=== PATIENT | male | born 1955 | race Caucasian/White ===

== ENCOUNTER 2018-02-05 11:21 | Emergency (ER) | payer MEDICARE ==
[~2018-02-05] VITALS: Ht 182.9 cm; Wt 126.5 kg
[~2018-02-05 11:21] MED LIST: AMLO10 PO; ASPI325 PO; ASPI325EC PO; ASPI81CH PO; ATOR10 PO; ATOR40TA PO; AZIT250 PO; AZOR; BENAML20/5; BISA5EC PO; BISHYD10; BISHYD10 PO; BISHYD2.5 PO; BUDEPRION; BUPR150ER PO; BUPR150T2 PO; BUPR75 PO; CIPR500 PO; CLOP75 PO; DOXA1 PO; DUTA.5 PO; ENOX100I SC; EZET10-10 PO; FEXPSEER PO; FURO20 PO; FURO40 PO; HYDACE5 PO; HYDR1TAB94 PO; HYDRA25 PO; Keflex500 MG PO; LEVFLO500 PO; LISI5 PO; LORA1 PO; LOSA25 PO; LOSA50 PO; LOSARTAN POTASS25 MG PO; MAGCIT300 PO; MELA3 PO; MELATONIN10 MG PO; METALAZONE; METO25ER PO; METO50 PO; NAPR500 PO; NITR.4SL SL; OXYACE5T PO; Omeprazole20 M1 PO; POTA10T PO; POTCHL20ER PO; PROBIOTIC1 EAC4 PO; PROM25 PO; Percocet 5-3251 EACH PO; RXOXYACE PO; RXPROM25 PO; SPIR25 PO; Stool Softener100 MG PO; TAMS.4ER PO; TORSE20 PO; TRIA80TC TOP; VYTORIN; WARF2.5 PO
[2018-02-05 12:14] LABS: Source, Urine Clean Catch
[2018-02-05 12:17] LABS: Bilirubin, Urine Neg (Neg); Blood, Urine Neg (Neg); Glucose Qualitative, Urine Neg (Neg); Ketones, Urine Neg (Neg); Leukocyte Esterase, Urine Neg (Neg); Nitrite, Urine Neg (Neg); Protein, Urine Neg (Neg); Urobilinogen, Urine NORM (Normal)
[2018-02-05 12:42] LABS: Appearance, Urine Clear (Clear); Color, Urine Yellow (P-Yellow)
[2018-02-05 12:51] LABS: BASOPHILS ABSOLUTE AUTO 0.03 K/mm3 (0.00-0.23); BASOPHILS PERCENT AUTO 0 % (0-2); EOSINOPHILS ABSOLUTE AUTO 0.18 K/mm3 (0.00-0.68); EOSINOPHILS PERCENT AUTO 2 % (0-6); Hematocrit 42.9 % (37.0-53.0); Hemoglobin 14.2 g/dL (13.5-17.5); IMMATURE GRAN ABSOLUTE AUTO 0.01 K/mm3 (0.00-0.10); IMMATURE GRAN PERCENT AUTO 0 % (0-1); LYMPHOCYTES ABSOLUTE AUTO 1.43 K/mm3 (0.84-5.20); LYMPHOCYTES PERCENT AUTO 19 % (21-46); MONOCYTES ABSOLUTE AUTO 0.82 K/mm3 (0.16-1.47); MONOCYTES PERCENT AUTO 11 % (4-13); Mean Corpuscular HGB 31.1 pg (26.0-34.0); Mean Corpuscular HGB Conc 33.1 g/dL (31.5-36.5); Mean Corpuscular Volume 94 fL (80-100); NEUTROPHILS ABSOLUTE AUTO 5.13 K/mm3 (1.96-9.15); NEUTROPHILS PERCENT AUTO 68 % (41-73); Platelet Count 207 K/mm3 (150-400); RDW Coefficient Variation 13.9 % (11.7-14.2); RDW Standard Deviation 48.3 fL (35.1-46.3); Red Blood Cell Count 4.57 M/mm3 (4.30-5.90)
[2018-02-05 13:03] LABS: International Normalized Ratio 2.54; Prothrombin Time Results 24.8 Sec (9.7-11.5)
[2018-02-05 13:10] LABS: Albumin, Blood 3.6 g/dL (3.4-5.0); Albumin/Globulin Ratio 1.1 (0.8-1.8); Bilirubin, Total 0.6 mg/dL (0.1-1.0); Bun/Creatinine Ratio 18.2 (12.0-20.0); Calcium, Blood 8.2 mg/dL (8.5-10.1); Creatinine, Blood 1.37 mg/dL (0.60-1.20); Globulin, Blood 3.2 g/dL (2.2-4.0); Potassium, Blood 4.1 mmol/L (3.5-5.5); Total Protein, Blood 6.8 g/dL (6.4-8.2)
[2018-02-05] MEDS ORDERED: Roxicodone5 MG (13:25)
== END 2018-02-05 16:04 | disposition home or self-care (01) ==
LOC: ER 11:21
PROVIDERS: Emergency Medicine
DX: R10.31 Right lower quadrant pain (principal); I11.0 Hypertensive heart disease with heart failure; I50.9 Heart failure, unspecified; E78.5 Hyperlipidemia, unspecified; F32.9 Major depressive disorder, single episode, unspecified; Z79.82 Long term (current) use of aspirin; Z79.899 Other long term (current) drug therapy; Z79.01 Long term (current) use of anticoagulants; Z87.891 Personal history of nicotine dependence
CPT/HCPCS: 36415; 74177; 80053; 81003; 83615; 85025; 85610; 96360; 99284; J7030; Q9967

== ENCOUNTER → 2018-02-10 | Outpatient (CLI) | payer MEDICARE ==
[~2018-02-10] MED LIST changes: +Roxicodone5 MG
== END ==
LOC: LAB SHORT 17:57 → LAB 17:57
DX: R10.84 Generalized abdominal pain (principal)
CPT/HCPCS: 87086

== ENCOUNTER 2020-04-29 18:07 | Emergency (ER) | payer MEDICARE ==
[~2020-04-29] VITALS: Ht 182.9 cm; Wt 119.3 kg
[2020-04-29 18:59] LABS: BASOPHILS ABSOLUTE AUTO 0.04 K/mm3 (0.00-0.23); BASOPHILS PERCENT AUTO 1 % (0-2); EOSINOPHILS ABSOLUTE AUTO 0.19 K/mm3 (0.00-0.68); EOSINOPHILS PERCENT AUTO 2 % (0-6); Hemoglobin 9.8 g/dL (13.5-17.5); IMMATURE GRAN ABSOLUTE AUTO 0.02 K/mm3 (0.00-0.10); IMMATURE GRAN PERCENT AUTO 0 % (0-1); LYMPHOCYTES ABSOLUTE AUTO 1.39 K/mm3 (0.84-5.20); LYMPHOCYTES PERCENT AUTO 17 % (21-46); MONOCYTES ABSOLUTE AUTO 0.84 K/mm3 (0.16-1.47); MONOCYTES PERCENT AUTO 10 % (4-13); Mean Corpuscular HGB 22.2 pg (26.0-34.0); Mean Corpuscular HGB Conc 28.8 g/dL (31.5-36.5); Mean Corpuscular Volume 77 fL (80-100); Mean Platelet Volume 10.2 fL (9.1-12.4); NEUTROPHILS ABSOLUTE AUTO 5.62 K/mm3 (1.96-9.15); NEUTROPHILS PERCENT AUTO 69 % (41-73); Platelet Count 306 K/mm3 (150-400); RDW Coefficient Variation 18.6 % (11.7-14.2); RDW Standard Deviation 52.1 fL (35.1-46.3); Red Blood Cell Count 4.41 M/mm3 (4.30-5.90)
[2020-04-29 19:08] LABS: Albumin, Blood 3.5 g/dL (3.4-5.0); Albumin/Globulin Ratio 1.1 (0.8-1.8); Bilirubin, Total 0.3 mg/dL (0.1-1.0); Bun/Creatinine Ratio 16.8 (12.0-20.0); Calcium, Blood 8.6 mg/dL (8.5-10.1); Creatinine, Blood 1.84 mg/dL (0.60-1.20); Globulin, Blood 3.2 g/dL (2.2-4.0); International Normalized Ratio 3.74; Potassium, Blood 4.1 mmol/L (3.5-5.5); Prothrombin Time Results 37.1 Sec (9.7-11.5); Total Protein, Blood 6.7 g/dL (6.4-8.2)
== END 2020-04-29 23:20 | disposition home or self-care (01) ==
LOC: ER 18:07
PROVIDERS: Emergency Medicine
DX: R79.1 Abnormal coagulation profile (principal); K14.8 Other diseases of tongue; Z79.82 Long term (current) use of aspirin; Z79.899 Other long term (current) drug therapy; Z79.01 Long term (current) use of anticoagulants; I11.0 Hypertensive heart disease with heart failure; I50.9 Heart failure, unspecified; I25.10 Atherosclerotic heart disease of native coronary artery without angina pectoris; I25.2 Old myocardial infarction; E78.5 Hyperlipidemia, unspecified; Z87.891 Personal history of nicotine dependence; Z95.811 Presence of heart assist device
CPT/HCPCS: 36415; 80053; 85025; 85610; 85730; 86850; 86900; 86901; C9046

== ENCOUNTER 2021-03-07 11:04 | Emergency (ER) | payer MEDICARE ==
[~2021-03-07] VITALS: Ht 182.9 cm; Wt 125.6 kg
[2021-03-07 11:53] LABS: BASOPHILS ABSOLUTE AUTO 0.01 K/mm3 (0.00-0.23); BASOPHILS PERCENT AUTO 0 % (0-2); EOSINOPHILS ABSOLUTE AUTO 0.19 K/mm3 (0.00-0.68); EOSINOPHILS PERCENT AUTO 3 % (0-6); Hematocrit 41.3 % (37.0-53.0); Hemoglobin 13.5 g/dL (13.5-17.5); IMMATURE GRAN ABSOLUTE AUTO 0.01 K/mm3 (0.00-0.10); IMMATURE GRAN PERCENT AUTO 0 % (0-1); LYMPHOCYTES PERCENT AUTO 13 % (21-46); MONOCYTES ABSOLUTE AUTO 0.97 K/mm3 (0.16-1.47); MONOCYTES PERCENT AUTO 16 % (4-13); Mean Corpuscular HGB 31.2 pg (26.0-34.0); Mean Corpuscular HGB Conc 32.7 g/dL (31.5-36.5); Mean Corpuscular Volume 95 fL (80-100); Mean Platelet Volume 10.5 fL (9.1-12.4); NEUTROPHILS ABSOLUTE AUTO 4.11 K/mm3 (1.96-9.15); NEUTROPHILS PERCENT AUTO 68 % (41-73); Platelet Count 183 K/mm3 (150-400); RDW Coefficient Variation 15.5 % (11.7-14.2); RDW Standard Deviation 54.5 fL (35.1-46.3); Red Blood Cell Count 4.33 M/mm3 (4.30-5.90); White Blood Cell Count 6.09 K/mm3 (4.00-11.30)
[2021-03-07 12:08] LABS: International Normalized Ratio 2.39; Prothrombin Time Results 24.6 Sec (9.7-11.5)
[2021-03-07 12:17] LABS: International Normalized Ratio 2.35; Prothrombin Time Results 24.2 Sec (9.7-11.5)
[2021-03-07 12:22] LABS: Albumin, Blood 3.2 g/dL (3.4-5.0); Bilirubin, Total 0.6 mg/dL (0.1-1.0); Bun/Creatinine Ratio 18.4 (12.0-20.0); Calcium, Blood 8.4 mg/dL (8.5-10.1); Creatinine, Blood 1.9 mg/dL (0.60-1.20); Globulin, Blood 3.1 g/dL (2.2-4.0); Potassium, Blood 4.4 mmol/L (3.5-5.5); Total Protein, Blood 6.3 g/dL (6.4-8.2)
[2021-03-07 13:59] LABS: Source, Urine Clean Catch
[2021-03-07 14:10] LABS: Appearance, Urine Clear (Clear); Bilirubin, Urine Neg (Neg); Blood, Urine Neg (Neg); Color, Urine Yellow (P-Yellow); Glucose Qualitative, Urine Neg (Neg); Ketones, Urine Neg (Neg); Leukocyte Esterase, Urine Neg (Neg); Nitrite, Urine Neg (Neg); Protein, Urine Neg (Neg); Specific Gravity, Urine 1.015 (1.003-1.022); Urobilinogen, Urine 1+ (Normal)
== END 2021-03-07 16:09 | disposition short-term general hospital (02) ==
LOC: ER 11:04
PROVIDERS: Physician Assistant
DX: K92.1 Melena (principal); T45.515A Adverse effect of anticoagulants, initial encounter; I11.0 Hypertensive heart disease with heart failure; I50.9 Heart failure, unspecified; Z79.82 Long term (current) use of aspirin; Z79.01 Long term (current) use of anticoagulants; Z95.811 Presence of heart assist device
CPT/HCPCS: 36415; 80053; 81003; 82272; 83690; 85025; 85610; 99285

== ENCOUNTER 2022-07-30 18:54 | Emergency (ER) | payer MEDICARE ==
[~2022-07-30] VITALS: Ht 182.9 cm; Wt 116.1 kg
[~2022-07-30 18:54] MED LIST changes: +ALLO100 PO; +CALC.25 PO; +ENTRESTO 24 MG1 EACH PO; +FARXIGA10 MG PO; +FINA5 PO; +LORA2 PO; +PANT20 PO; +TRAM50 PO
[2022-07-30 20:08] LABS: BASOPHILS ABSOLUTE AUTO 0.03 K/mm3 (0.00-0.23); BASOPHILS PERCENT AUTO 0 % (0-2); EOSINOPHILS ABSOLUTE AUTO 0.11 K/mm3 (0.00-0.68); EOSINOPHILS PERCENT AUTO 2 % (0-6); Hematocrit 45.1 % (37.0-53.0); Hemoglobin 14.1 g/dL (13.5-17.5); IMMATURE GRAN ABSOLUTE AUTO 0.01 K/mm3 (0.00-0.10); IMMATURE GRAN PERCENT AUTO 0 % (0-1); LYMPHOCYTES ABSOLUTE AUTO 1.22 K/mm3 (0.84-5.20); LYMPHOCYTES PERCENT AUTO 16 % (21-46); MONOCYTES PERCENT AUTO 12 % (4-13); Mean Corpuscular HGB 26.8 pg (26.0-34.0); Mean Corpuscular HGB Conc 31.3 g/dL (31.5-36.5); Mean Corpuscular Volume 86 fL (80-100); Mean Platelet Volume 10.5 fL (9.1-12.4); NEUTROPHILS PERCENT AUTO 70 % (41-73); Platelet Count 266 K/mm3 (150-400); RDW Coefficient Variation 16.6 % (11.7-14.2); Red Blood Cell Count 5.27 M/mm3 (4.30-5.90); White Blood Cell Count 7.47 K/mm3 (4.00-11.30)
[2022-07-30] MEDS ORDERED: ENOX60I SC (20:19)
[2022-07-30] MEDS ORDERED: ENTRESTO 24 MG1 EACH PO (20:19)
[2022-07-30] MEDS ORDERED: Nexium40 MG PO (20:21)
[2022-07-30] MEDS ORDERED: FERSU300 PO (20:22)
[2022-07-30] MEDS ORDERED: ALLEGRA ALLERG180 MG PO (20:22)
[2022-07-30] MEDS ORDERED: OXYC5 PO (20:25)
[2022-07-30 20:29] LABS: Albumin/Globulin Ratio 1.3 (0.8-1.8); Bilirubin, Total 0.6 mg/dL (0.1-1.0); Bun/Creatinine Ratio 17.2 (12.0-20.0); Creatinine, Blood 1.74 mg/dL (0.60-1.20)
[2022-07-30 21:42] LABS: Source, Urine Voided
[2022-07-30 21:55] LABS: Appearance, Urine Clear (Clear); Bilirubin, Urine Neg (Neg); Blood, Urine Neg (Neg); Glucose Qualitative, Urine 2+ (Neg); Ketones, Urine Neg (Neg); Leukocyte Esterase, Urine Neg (Neg); Nitrite, Urine Neg (Neg); Protein, Urine Neg (Neg); Urobilinogen, Urine NORM (Normal)
[2022-07-30 22:08] LABS: Color, Urine Pale Yellow (P-Yellow)
[2022-07-30] MEDS ORDERED: Percocet 5-3251 EACH PO (22:19)
[2022-07-30] MEDS ORDERED: AMOCLA875 PO (22:19)
== END 2022-07-30 23:04 | disposition home or self-care (01) ==
LOC: ER 18:54
PROVIDERS: Emergency Medicine; Physician Assistant
DX: K57.92 Diverticulitis of intestine, part unspecified, without perforation or abscess without bleeding (principal); I11.0 Hypertensive heart disease with heart failure; I50.9 Heart failure, unspecified; I25.2 Old myocardial infarction; N40.0 Benign prostatic hyperplasia without lower urinary tract symptoms; Z95.5 Presence of coronary angioplasty implant and graft; Z87.891 Personal history of nicotine dependence; Z79.899 Other long term (current) drug therapy
CPT/HCPCS: 36415; 74177; 80053; 81003; 84484; 85025; 93005; 93010; A9270; Q9967

== ENCOUNTER 2022-09-22 15:25 | Emergency (ER) | payer MEDICARE ==
[~2022-09-22] VITALS: Ht 182.9 cm; Wt 113.8 kg
[~2022-09-22 15:25] MED LIST changes: +ALLEGRA ALLERG180 MG PO; +AMOCLA875 PO; +ENOX60I SC; +FERSU300 PO; +Nexium40 MG PO; +OXYC5 PO
[2022-09-22 17:04] LABS: International Normalized Ratio 2.34; Prothrombin Time Results 23.2 Sec (9.7-11.5)
== END 2022-09-22 17:25 | disposition home or self-care (01) ==
LOC: ER 15:25
PROVIDERS: Emergency Medicine
DX: R04.0 Epistaxis (principal); I11.0 Hypertensive heart disease with heart failure; I50.9 Heart failure, unspecified; E78.5 Hyperlipidemia, unspecified; N40.0 Benign prostatic hyperplasia without lower urinary tract symptoms; Z79.899 Other long term (current) drug therapy; Z79.01 Long term (current) use of anticoagulants; Z95.5 Presence of coronary angioplasty implant and graft; Z95.810 Presence of automatic (implantable) cardiac defibrillator; Z87.891 Personal history of nicotine dependence
CPT/HCPCS: 36415; 85610; A9270

== ENCOUNTER 2022-09-24 11:32 | Emergency (ER) | payer MEDICARE ==
[~2022-09-24] VITALS: Ht 185.4 cm; Wt 113.8 kg
[2022-09-24 12:15] LABS: BASOPHILS ABSOLUTE AUTO 0.03 K/mm3 (0.00-0.23); BASOPHILS PERCENT AUTO 0 % (0-2); EOSINOPHILS ABSOLUTE AUTO 0.17 K/mm3 (0.00-0.68); EOSINOPHILS PERCENT AUTO 2 % (0-6); Hematocrit 38.6 % (37.0-53.0); Hemoglobin 12.2 g/dL (13.5-17.5); IMMATURE GRAN ABSOLUTE AUTO 0.02 K/mm3 (0.00-0.10); IMMATURE GRAN PERCENT AUTO 0 % (0-1); LYMPHOCYTES PERCENT AUTO 8 % (21-46); MONOCYTES ABSOLUTE AUTO 0.74 K/mm3 (0.16-1.47); MONOCYTES PERCENT AUTO 9 % (4-13); Mean Corpuscular HGB 28.9 pg (26.0-34.0); Mean Corpuscular HGB Conc 31.6 g/dL (31.5-36.5); Mean Corpuscular Volume 92 fL (80-100); Mean Platelet Volume 10.3 fL (9.1-12.4); NEUTROPHILS ABSOLUTE AUTO 6.91 K/mm3 (1.96-9.15); NEUTROPHILS PERCENT AUTO 81 % (41-73); Platelet Count 250 K/mm3 (150-400); RDW Coefficient Variation 18.1 % (11.7-14.2); RDW Standard Deviation 59.2 fL (35.1-46.3); Red Blood Cell Count 4.22 M/mm3 (4.30-5.90); White Blood Cell Count 8.57 K/mm3 (4.00-11.30)
[2022-09-24 12:32] LABS: International Normalized Ratio 2.38; Prothrombin Time Results 23.6 Sec (9.7-11.5)
[2022-09-24 13:32] LABS: Albumin, Blood 3.4 g/dL (3.4-5.0); Albumin/Globulin Ratio 1.1 (0.8-1.8); Bilirubin, Total 0.7 mg/dL (0.1-1.0); Bun/Creatinine Ratio 24.8 (12.0-20.0); Calcium, Blood 8.7 mg/dL (8.5-10.1); Creatinine, Blood 1.49 mg/dL (0.60-1.20); Potassium, Blood 4.4 mmol/L (3.5-5.5); Total Protein, Blood 6.4 g/dL (6.4-8.2)
== END 2022-09-24 14:32 | disposition home or self-care (01) ==
LOC: ER 11:32
PROVIDERS: Physician Assistant
DX: R20.2 Paresthesia of skin (principal); I11.0 Hypertensive heart disease with heart failure; I50.9 Heart failure, unspecified; E78.5 Hyperlipidemia, unspecified; N40.0 Benign prostatic hyperplasia without lower urinary tract symptoms; Z95.810 Presence of automatic (implantable) cardiac defibrillator; Z87.891 Personal history of nicotine dependence; Z79.899 Other long term (current) drug therapy; Z79.01 Long term (current) use of anticoagulants
CPT/HCPCS: 36415; 80053; 83615; 85025; 85610; 93971; 99284-25

== ENCOUNTER 2022-09-26 07:07 | Inpatient (IN) | payer MEDICARE ==
[~2022-09-26] VITALS: Ht 182.9 cm; Wt 115.6 kg
[2022-09-26 07:27] LABS: BASOPHILS ABSOLUTE AUTO 0.03 K/mm3 (0.00-0.23); BASOPHILS PERCENT AUTO 0 % (0-2); EOSINOPHILS ABSOLUTE AUTO 0.17 K/mm3 (0.00-0.68); EOSINOPHILS PERCENT AUTO 2 % (0-6); Hematocrit 35.6 % (37.0-53.0); Hemoglobin 11.1 g/dL (13.5-17.5); IMMATURE GRAN ABSOLUTE AUTO 0.02 K/mm3 (0.00-0.10); IMMATURE GRAN PERCENT AUTO 0 % (0-1); LYMPHOCYTES ABSOLUTE AUTO 0.89 K/mm3 (0.84-5.20); LYMPHOCYTES PERCENT AUTO 12 % (21-46); MONOCYTES ABSOLUTE AUTO 0.79 K/mm3 (0.16-1.47); MONOCYTES PERCENT AUTO 10 % (4-13); Mean Corpuscular HGB 29.1 pg (26.0-34.0); Mean Corpuscular HGB Conc 31.2 g/dL (31.5-36.5); Mean Corpuscular Volume 93 fL (80-100); Mean Platelet Volume 10.2 fL (9.1-12.4); NEUTROPHILS ABSOLUTE AUTO 5.75 K/mm3 (1.96-9.15); NEUTROPHILS PERCENT AUTO 75 % (41-73); Platelet Count 219 K/mm3 (150-400); RDW Coefficient Variation 18.5 % (11.7-14.2); RDW Standard Deviation 60.8 fL (35.1-46.3); Red Blood Cell Count 3.82 M/mm3 (4.30-5.90); White Blood Cell Count 7.65 K/mm3 (4.00-11.30)
[2022-09-26 07:43] LABS: International Normalized Ratio 2.2; Prothrombin Time Results 21.9 Sec (9.7-11.5)
[2022-09-26 07:52] LABS: Albumin, Blood 3.3 g/dL (3.4-5.0); Albumin/Globulin Ratio 1.2 (0.8-1.8); Bilirubin, Total 0.6 mg/dL (0.1-1.0); Bun/Creatinine Ratio 21.2 (12.0-20.0); Calcium, Blood 8.7 mg/dL (8.5-10.1); Creatinine, Blood 1.51 mg/dL (0.60-1.20); Globulin, Blood 2.7 g/dL (2.2-4.0); Potassium, Blood 4.3 mmol/L (3.5-5.5)
[2022-09-26] MEDS ORDERED: SPIR25 PO (16:15)
[2022-09-26] MEDS ORDERED: TRAZ50 PO (16:17)
--- NOTE | 2022-09-26 17:25 | NUR ---
Spoke with admitting provider Gm and discussed case. Pt resting in bed and appears mildly anxious as evidenced by Pt tapping the bedrail with his right hand. Pt's spouse and 2 daughters at bedside. Stepped away from Pt's bed towards door way as spouse request. Reviewed plan of care and engaged in therapeutic discussion regarding goals of care. Listened as spouse Ivet reports that she would like the Pt to remain at [facility] and does not want Pt transfered. She reports speaking with [facility] and was told treatment will not be any different. Answered questions and continued therapeutic listening. Family discusses if needed they will consider comfort care and hospice. Continued goals of care conversation with family reporting Pt would be agreeable to escalting care and ICU if needed. They report BIPAP is ok if needed and medications to keep blood pressure. They report Pt would not want CPR amd would not want to be intubated. Family reports plan for continued treatment and will reconsider goals of care in a couple days if no improvement. Family also reports considering comfort care and hospice if no improvement. Family expresses appreciation and reports no other concerns at this time. Family agreeable for continued PC visits. Spoke with Pt's Primary RN Jennifer and relayed information. Jennifer reports plan to call Dr Panchal and relay family wishes. Palliative Care will remain available
--- NOTE | 2022-09-26 18:48 | NUR ---
ADMIT NOTE AND SHIFT SUMMARY PT ARRIVED TO PCU FROM ED VIA ED STRETCHER AT APPROX 1300. PT WAS SLID BY 4 STAFF FROM ED STRETCHER TO PCU BED. UPON ARIVAL, PT ALERT, ABLE TO ANSWER QUESTIONS AND FOLLOW COMMANDS. L SIDE WEAKNESS NOTED, ABLE TO SQUEEZE FINGERS, PUSH AND PULL ON BOTH SIDES. PT ORIENTED TO ROOM, CALL LIGHT. SPEECH THERAPY IN ROOM TO EVALUATE. SPEECH THERAPY MOMENTS LATER CALLED THIS RN TO ROOM WITH NOTABLE PT CHANGES. PT NO LONGER FOLLOWING COMMANDS, GARBLED SPEECH, NO PURPOSEFUL MOVEMENTS NOTED ON L SIDE. CALL PLACED TO ROBERT MORAES. ALEISHA JONES W/ ORDERS FOR STAT HEAD CT. THIS RN AND WEB SERVICES PROFESSIONAL TOOK PT TO IMAGING. ONCE BACK IN ROOM, ALEISHA JONES IN ROOM TO ASSESS PT. PT CURRENTLY ALERT, ABLE TO MAKE NEEDS KNOWN/ANSWER QUESTIONS. L SIDE FACIAL DROOP NOTED WHEN SMILING/TALKING AROUND MOUTH. NO PUPOSEFUL MOVEMENTS/UNABLE TO FOLLOW COMMANDS REGARDING L SIDE. SP02>90% ON RA. TELEMETRY SHOWS SINUS TACH, HR 120'S AVG. PT HAS LVAD, COMMUNICATING W/ [facility] LV[facility] NURSE OFTEN THIS SHIFT. DOPPLER MAP: 144, THEN 130'S. ECHO DONE THIS SHIFT: EF 30-35%. C/O OF L GROIN PAIN AND BACK PAIN. MEDICATING PER EMAR. CONDOM CATH ATTEMPTED, DID NOT FIT PT WELL. LINEN CHANGED X3. CATH REMOVED, ATTENDS IN PLACE CURRENTLY. NO BM THIS SHIFT. LVAD NURSE CALLED TO NOTIFY OF POTENTIAL BED AVAILABLE AT [facility]. AFTER FAMILY DISCUSSED WITH EACH OTHER, PT, PALLIATIVE CARE NURSE, AND LVAD NURSE, FAMILY/PT MADE DECISION TO NOT TRANSFER TO [facility]. FAMILY IN ROOM. PT RESTING IN BED. CALL LIGHT IN REACH.
[2022-09-27 02:17] LABS: Hematocrit 34.6 % (37.0-53.0); Hemoglobin 11.1 g/dL (13.5-17.5); Mean Corpuscular HGB 29.6 pg (26.0-34.0); Mean Corpuscular HGB Conc 32.1 g/dL (31.5-36.5); Mean Corpuscular Volume 92 fL (80-100); Mean Platelet Volume 10.1 fL (9.1-12.4); Platelet Count 218 K/mm3 (150-400); RDW Coefficient Variation 18.8 % (11.7-14.2); RDW Standard Deviation 60.9 fL (35.1-46.3); Red Blood Cell Count 3.75 M/mm3 (4.30-5.90); White Blood Cell Count 10.41 K/mm3 (4.00-11.30)
[2022-09-27 02:45] LABS: Magnesium, Blood 2.3 mg/dL (1.6-2.4)
[2022-09-27 02:51] LABS: Bun/Creatinine Ratio 16.8 (12.0-20.0); Calcium, Blood 8.4 mg/dL (8.5-10.1); Creatinine, Blood 1.37 mg/dL (0.60-1.20); Potassium, Blood 3.8 mmol/L (3.5-5.5)
--- NOTE | 2022-09-27 06:51 | NUR ---
SHIFT SUMMARY PT HAD A "ROUGH NIGHT". PT DID NOT SLEEP VERY WELL D/T ANXIETY AND PAIN IN HIS BACK AND LEGS. FENTANYL GIVEN WITHOUT EFFECT. DIPAUDID WAS ORDERD AND WAS EFFECTIVE IN EASING PT PAIN ENOUGH FOR HIM TO SLEEP. PT LVAD WORKING WELL. CONDOM CATHETER PLACED TO ASSIST WITH URINE COLLECTION. IT WORKED FOR A TIME, BUT WORKED ITS WAY OFF AND PT SOILED THE BED. GIANA PADS WERE CHANGED AND PT CLEANED AND NEW, SMALLER CONDOM CATH PLACED, WHICH WAS MORE EFFECTIVE. VSS. DOPPLER BP WAS STABLE, BUT ELEVATED, ACCORDING TO . PT ALERT AND ORIENTED X4. SEVERE FACIAL DROOP ON L SIDE, ACCOMPANIED BY COMPLETE HEMIANOPIA, NEGLECT, AND FLACID LIMBS ON THE LEFT SIDE. OBEYS COMMANDS, RESPONDS TO QUESTIONS APPROPRIATELY. NO NEURO CHANGES THOUGHOUT SHIFT. WILL CONTINUE TO MONITOR.
--- NOTE | 2022-09-27 10:52 | NUR ---
Spoke with Primary RN Jayde and discussed case. Pt experiencing significant pain when awake and pain medications are making Pt somnalant making it difficult for therapy to work with Pt. LVAD nurse called to have family consider turning off AICD pending Pt's goals. Pt resting in bed with his eyes closed. Pt appears comfortable with no S/S of distress at this time. Pt's 2 daughters at bedside. Daughters report spouse has gone home to get some rest as they all have been here all night. Engaged in therapeutic discussion regarding goals of care. Family report being in agreement in maintaining current plan of care. Relayed recommendations regardiing AICD pending goals of care. Discuss the need for Pt to work with Pt and finding medication that won't make Pt so somnalant. Called and spoke with hospital pharmacist. Toradol may be appropriate if hospitalist is agreeable. Called and spoke with Dr Black and discussed case. Placed order for Toradol 15mg IV every 8 hours as needed up to 3 days max per V/O from Dr Black. Palliative Care will remain available
[2022-09-27 12:19] LABS: Source, Urine Clean Catch
[2022-09-27 12:46] LABS: Appearance, Urine Clear (Clear); Bilirubin, Urine Neg (Neg); Blood, Urine 2+ (Neg); Color, Urine Yellow (P-Yellow); Glucose Qualitative, Urine 4+ (Neg); Ketones, Urine 3+ (Neg); Leukocyte Esterase, Urine Neg (Neg); Nitrite, Urine Neg (Neg); Protein, Urine 2+ (Neg); Urobilinogen, Urine NORM (Normal)
[2022-09-27 13:20] LABS: Bacteria Few /hpf; Squamous Epithelial Cells Few /hpf (Few); White Blood Cells, Urine 0-2 /hpf (0-5)
--- NOTE | 2022-09-27 18:16 | NUR ---
SHIFT SUMMARY; ASSUMED CARE AT 0700. SOMMULANT AND DIFFICULT TO ARROUSE IN AM, WHEN AWAKE FALLS BACK ASLEEP EASILY. DISCUSSED WITH DR. HAYES CONCERNED WITH OVER SEDATION FROM PAIN MEDS. DILAUDID DC'D TORADOL AND FENTANYL ORDERED. GRADUALLY MORE AWAKE IN AFTERNOON, ABLE TO PARTICIPATE IN ST EVAL. TO REMAIN NPO FOR ASPIRATION RISK. A/A/OX2, ANSWERS SOME QUESTIONS WITH SHORT ONE WORD ANSWERS. SLIGHT MOVEMENT OF LEFT LEG WHEN PROMPTED, RIGHT ARM FLACCID WITH EXCEPTION OF SLIGHT COMMERCIAL INTERIOR DESIGNER. LEFT SIDE FACIAL DROOP PRESENT. REPORTS LOW BACK AND LEFT HIP PAIN CONSTANTLY WITHOUT LETTING UP. SPOKE WITH DOCTOR. XRAYS OF AREA ORDERED DUE TO FALL YESTERDAY PRIOR TO ARRIVAL. CONDOM CATH LEAKING DURING SHIFT AND REMOVED. PLACED IN ATTENDS, Q2 TURNS DURING SHIFT. LVAD IN PLACE AND PLUGGED INTO WALL. FAMILY AT BEDSIDE DURING SHIFT. WILL CONTINUE TO MONITOR AND TREAT UNTIL CHANGE OF SHIFT.
[2022-09-28 03:33] LABS: Hematocrit 35.6 % (37.0-53.0); Hemoglobin 11.2 g/dL (13.5-17.5); Mean Platelet Volume 10.4 fL (9.1-12.4); Platelet Count 226 K/mm3 (150-400)
--- NOTE | 2022-09-28 06:14 | NUR ---
SHIFT SUMMARY PT A&0 X4, ALTHOUGH RESPONSES ARE SLOWED. PT Q4 NEURO CHECKS WNL AND UNCHANGED THIS SHIFT. PT OBEYS COMMANDS AND IS ABLE TO MOSTLY VERBALIZE HIS NEEDS. PT STILL REPORTS PAIN IN BACK, HIP AND GROIN AREA. PAIN RATED 8/10 ON PAIN SCALE, MEDICATED X1 PER EMAR. VSS; BP COMPLETED USING DOPPLER 120 - 140. PT HAD ONE BM THIS SHIFT USING BEDPAN. ATTENDS CHANGED PRN FOR INCONTINENCE. Q2 TURNS COMPLETED. AT BEDSIDE FOR SHIFT AND STAYED OVERNIGHT. NO ACUTE CHANGES THIS SHIFT. WILL UPDATE ONCOMING RN. CALL LIGHT IN REACH AND BED IN LOWEST POSITION
--- NOTE | 2022-09-28 18:09 | NUR ---
SHIFT SUMMARY; ASSUMED CARE AT 0700. WHEN AWAKE ALERT AND ORIENTED WITH SLOW SPEECH. SOMMULENT OFF AND ON DURING SHIFT WITH NO SEDATING MEDS GIVEN. LEFT ARM REMAINS FLACCID, LEFT FOOT WITH POSITIVE REFLEX AND WIGGLES TOES AT TIMES. AT TIMES DURING SHIFT INVOLUNTARY MOVEMENT OF RIGHT ARM AND LEG NOTED. RIGHT ARM RIDGID AND EXTENDED AT TIMES WHILE PT APPEARS TO BE ASLEEP, RIGHT FOOT TWITCHES INVOLUNTARILY. SPOKE WITH REGARDING POSSIBLE DECLINE IN NEURO STATUS. PALLATIVE CARE RN MET WITH FAMILY TODAY. FAMILY CONSIDERING HOSPICE VS COMFORT CARE. WILL CONTINUE TO MONITOR AND TREAT UNTIL CHANGE OF SHIFT.
[2022-09-29 03:50] LABS: BASOPHILS ABSOLUTE AUTO 0.03 K/mm3 (0.00-0.23); BASOPHILS PERCENT AUTO 0 % (0-2); EOSINOPHILS PERCENT AUTO 1 % (0-6); Hematocrit 39.7 % (37.0-53.0); Hemoglobin 12.3 g/dL (13.5-17.5); IMMATURE GRAN ABSOLUTE AUTO 0.06 K/mm3 (0.00-0.10); IMMATURE GRAN PERCENT AUTO 0 % (0-1); LYMPHOCYTES ABSOLUTE AUTO 0.65 K/mm3 (0.84-5.20); LYMPHOCYTES PERCENT AUTO 5 % (21-46); MONOCYTES ABSOLUTE AUTO 1.07 K/mm3 (0.16-1.47); MONOCYTES PERCENT AUTO 8 % (4-13); Mean Corpuscular HGB 28.5 pg (26.0-34.0); Mean Corpuscular Volume 92 fL (80-100); Mean Platelet Volume 10.2 fL (9.1-12.4); NEUTROPHILS ABSOLUTE AUTO 11.65 K/mm3 (1.96-9.15); NEUTROPHILS PERCENT AUTO 86 % (41-73); Platelet Count 245 K/mm3 (150-400); RDW Coefficient Variation 19.6 % (11.7-14.2); RDW Standard Deviation 65.7 fL (35.1-46.3); Red Blood Cell Count 4.31 M/mm3 (4.30-5.90); White Blood Cell Count 13.56 K/mm3 (4.00-11.30)
--- NOTE | 2022-09-29 06:32 | NUR ---
SHIFT SUMMARY PT NEURO CHECKS WNL, NO ACUTE CHANGES. PT A&O. AT TIMES PT TAKES A WHILE TO ANSWER QUESTIONS AND/OR NEEDS QUESTIONS REPEATED THEN HE ANSWERS. PT FOLLOWING COMMANDS, R SIDE STRENGTH AND MOVEMENT REMAIN INTACT, L SIDE STILL SHOWS DEFICIT W/NO MOVEMENT OR STRENGTH. PT HAVING SOME "SPASMS OR SHARP PAIN" IN R ARM AND WRIST. VSS. PT DID HAVE INCREASED SOB, WOB AND AUDIBLE WHEEZING. SPO2 MAINTAINED >94%. PT STATES "FEELS LIKE HE IS HAVING A HARD TIME BREATHING". HOSPITALIST NOTIFIED. NEW ORDERS FOR ONE TIME DOSE OF 40 MG OF IV LASIX, WELL AT TO RESTART HOME DIURETICS. SINCE, PT BREATHING AND WOB HAS SLIGHLY IMPROVED. PT REPORTS SOME GENERAL PAIN, MEDICATED PER EMAR. PT REPORTS ANXIETY; MEDICATED PER EMAR. PT ABLE TO SLEEP SOME ON AND OFF, BUT NOT MUCH. APPEARS RESTLESS AT TIMES. PT REPOSITIONED AND ATTENDS CHANGED Q2 OR PRN. CALL LIGHT IN REACH, ALTHOUGH PT NOT REALLY USING IT. PT ENCOURAGED TO USE CALL LIGHT FOR NEEDS, VERBALIZES UNDERSTANDING. WILL UPDATE ONCOMING RN.
--- NOTE | 2022-09-29 06:43 | NUR ---
PT HAVING SOME PVC'S AND ONE EVENT OF TRIGEMENY ON MONITOR PER PAPER CORE MACHINE OPERATOR.
--- NOTE | 2022-09-29 06:45 | NUR ---
DURING THE NIGHT, JANICE FROM [facility] (LVAD SPECIALIST) CALLED. SHE LEFT PHONE NUMBER FOR QUESTIONS REGARDING LVAD MACHINE OR ANYTHING RELATED TO; [phone]. ALSO REQUESTS THAT THE LVAD TEAM BE INFORMED AND UPDATED ABOUT PLAN FOR PT AND DISCHARGE, THEY CAN BE PART OF THE CARE TEAM IN COORDINATING ANY NEEDS OR INFORMATION FOR OTHER TEAM MEMEBERS.
--- NOTE | 2022-09-29 18:16 | NUR ---
multiple visits pt has aicd turned off, assited with funneral body donation plan. Multiple family member in comfort quilt palced.
--- NOTE | 2022-09-30 06:32 | NUR ---
PT IS A&O1-3, BEDREST, COMFORT CARE, PRN MORPHINE AND ROXINOL GIVEN THIS SHIFT, FAMILY AT BEDSIDE THROUGHOUT NIGHT, CONTINUE POC
--- NOTE | 2022-09-30 16:54 | NUR ---
Spoke to pt's family this am at bedside; at that time they had elected to unplug pt LVA this afternoon. However, as the day progressed, family had decided not to follow through with the plan today, as pt is "in a really good, alert mood today with no pain". They would like to enjoy this time with him, and will revaluate his condition tomorrow.
--- NOTE | 2022-10-02 06:22 | NUR ---
PT IS A&O2-3, BEDREST COMFORT CARE, RA, PRN PAIN MEDS GIVEN PER MAR THIS SHIFT DUE TO GENERALIZED PAIN, CONTINUE POC
--- NOTE | 2022-10-02 15:39 | NUR ---
Spiritual Care Visit. Pt. is resting and is mostly not responsive. Pts. daughter, who is known to this correctional food service supervisor, requested I come to bedside. Family is unsettled by the delay in getting Pt. home on hospice. Listen with empathy and a calming presence. While present, Pts. Doctor arrived to give update on plan of care. Family asked many questions. After doctor left, I prayed with family and the Pt. Family verbalized gratitude for the spiritual care visit.
--- NOTE | 2022-10-02 15:52 | NUR ---
Met with pt, family, MALINI Hoffman and Dr. Mclain at bedside. , daughter via phone call. Last evening, this RN met with multiple family members and Dr. Panchal regarding comfort care, hospice philosophy. Family reported they are unable to assist pt and asked if he could stay in hospital for an additional 2 weeks while waiting for [facility] to have adequate hours available to care for this pt, to which I explained 2 weeks more is not likely, as the pt is no longer in the acute phase of illness. Both pt's and daughters began to speak loudly last evening in my office, stating this feels like some sort of "sabotage", or "payback" for people "having to deal with the LVAD". They also state they think caregivers are not available specifically to them due to lack of LVAD training. I attempted several times to explain this is not the case, but was unable to get through. Dr. Panchal then attempted to explain another time to family what hospice provides, and they seemed to better understand at that point. Unfortunately by today, they stated to myself and Dr. Mclain, "So hospice will bring the bed and then leave us alone, right?" [employer] then attempted to explain the hospice benefit, and felt unsure if this was understood by family. This morning, pt's family stated they no longer wanted [facility] "because [facility] will do way more for us than [facility], and they're delivering a bed today". Due to this statement, [facility] Consult was rightfully cancelled. However, over the course of the day, it became apparent that [facility] was not admitting this patient to hospice, as they don't admit pt's with LVAD's, and they don't have any openings. Again, [facility] was called in by direct care supervisor, and there were questions of whether the goals of family and pt lined up with the hospice philosophy. It was at this point it appeared important to have a conversation with the patient himself regarding his wishes. He states, "I want to go home. I asked him if he understood what was happening, he stated, "Yes, my body is shutting down". I asked him if he was afraid, he stated, "No, I'm ready and I want to go home". I was not comfortable asking about the LVAD, as his and daughters stated I was "forbidden from having that discussion with him". There were other issues that arose as the day progressed, as questions arose regarding continued warfarin use, and how/if patient would have labs drawn, and regarding other life saving measures that family wishes to continue. Plan to place Ethics consult if no resolution, as patient's wishes appear not to be considered by family, and it isn't clear if family is going to allow end of life care to be carried out for this patient.
--- NOTE | 2022-10-02 17:50 | NUR ---
Case conference with Dr Mclain, Dr Panchal, and discussed case. Plan to have conversation regarding hospice services and making family understands expectations of services. Dr Mclain and this RN arrived to room with spouse at bedside. Daughter Suresh enters room shortly after our arrival. Engaged in therapeutic conversation regarding hospice philosophy. Assess family's expectations regarding hospice services and discussed careteam involved with services. Family reports understanding and would like hospice philosophy. reports being very knowledgable with LVAD and has supplies for at least 8 months. She reports having supplies to be able to draw Pt's blood and run it through the test machine. She reports she calls LVAD team with results and team instructors on medication to provide for therpaeutic INR. Continued supportive visit and discussed plan for D/C tomorrow with hospice services. Palliative Care will remain available
[2022-10-02 18:07] LABS: International Normalized Ratio 1.55; Prothrombin Time Results 15.8 Sec (9.7-11.5)
[2022-10-03 05:30] LABS: International Normalized Ratio 1.71; Prothrombin Time Results 17.3 Sec (9.7-11.5)
--- NOTE | 2022-10-03 06:21 | NUR ---
AUTOMOTIVE FUEL INJECTION SERVICER SUMMARY PT ON COMFORT CARE AND FAMILY AT BEDSIDE T/O THE NIGHT. PT RESPONSIVE TO VERBAL STIMULI WITH OCCASIONAL BRIEF MOMENTS OF ALERTNESS. PT MED P/EMAR FOR PAIN IN RIGHT HIP/KNEE. PT ALSO C/O HEADACHE T/O THE NIGHT. NOTED IRREGULAR APNEIC BREATHING W/LONG PAUSES PERIODICALLY T/O THE NIGHT. FAMILY CALL F/ASSISTANCE WHEN NEEDED.
[2022-10-03] MEDS ORDERED: MORP20L SL (12:02)
[2022-10-03] MEDS ORDERED: ATROPINE SULFATE2 M1 SL (12:02)
[2022-10-03] MEDS ORDERED: TRANSDERM-SCOP1 EA13 TD (12:03)
[2022-10-03] MEDS ORDERED: BRILINTA90 M1 PO (12:04)
--- NOTE | 2022-10-03 16:28 | NUR ---
SHIFT SUMMARY PTN D/C HOME ON HOSPICE. FAMILY PRESENT. PTN TRANSFERRED VIA AMBULANCE AT 1305. PTN ON COMFORT CARE AND REMAINED COMFORTABLE THIS SHIFT. SOME APNEIC EPISODES, TOOK A TABLET WITH APPLESAUCE WITH SOME SWALLOW DIFFICULTY.
== END 2022-10-03 13:23 | disposition hospice, home (50) | DRG 65 ==
LOC: ER 07:07 → PCU 11:33 → MEDS 09-29 12:35
PROVIDERS: Emergency Medicine; Family Medicine; Nurse Practitioner Acute Care; ADMIT Internal Medicine
DX: I63.231 Cerebral infarction due to unspecified occlusion or stenosis of right carotid arteries (principal); G81.94 Hemiplegia, unspecified affecting left nondominant side; I13.0 Hypertensive heart and chronic kidney disease with heart failure and stage 1 through stage 4 chronic kidney disease, or unspecified chronic kidney disease; I50.22 Chronic systolic (congestive) heart failure; F41.9 Anxiety disorder, unspecified; N40.0 Benign prostatic hyperplasia without lower urinary tract symptoms; I25.10 Atherosclerotic heart disease of native coronary artery without angina pectoris; Z51.5 Encounter for palliative care; Z66 Do not resuscitate; K21.9 Gastro-esophageal reflux disease without esophagitis; R13.10 Dysphagia, unspecified; E78.5 Hyperlipidemia, unspecified; N18.30 Chronic kidney disease, stage 3 unspecified; M54.50 Low back pain, unspecified; M25.552 Pain in left hip; F32.A Depression, unspecified; R29.704 NIHSS score 4; D63.1 Anemia in chronic kidney disease; I25.5 Ischemic cardiomyopathy; G89.4 Chronic pain syndrome; R29.810 Facial weakness; Z96.651 Presence of right artificial knee joint; Z95.5 Presence of coronary angioplasty implant and graft; Z87.19 Personal history of other diseases of the digestive system; Z95.810 Presence of automatic (implantable) cardiac defibrillator; Z79.899 Other long term (current) drug therapy; Z79.02 Long term (current) use of antithrombotics/antiplatelets; Z79.01 Long term (current) use of anticoagulants; Z79.891 Long term (current) use of opiate analgesic; Z86.79 Personal history of other diseases of the circulatory system; I25.2 Old myocardial infarction; Z90.49 Acquired absence of other specified parts of digestive tract; Z98.890 Other specified postprocedural states
CPT/HCPCS: 36415; 70450; 70496; 70498; 71045; 72100; 73502; 80048; 80053; 81001; 82947; 83605; 83615; 83735; 84145; 85014; 85018; 85025; 85027; 85049; 85610; 85730; 87040; 92526; 92610; 93005; 93010; 93306; 94660; 94762; 96374-59; 97110; 97162; 97530; 99285-25; A9270; C9113; J1170; J1644; J1650; J1885; J1940; J2060; J2270; J2405; J2765; J3010; J7030; Q9967